=== PATIENT | male | born 1955 | race Caucasian/White ===

== ENCOUNTER → 2018-04-05 | Outpatient (CLI) | payer MEDICAID ==
[2018-04-05 14:33] LABS: Basophils # (A) 0.1 k/uL (0-0.2); Basophils % (A) 1 %; Eosinophils # (A) 0.1 k/uL (0-0.7); Eosinophils % (A) 1 %; HCT 46.7 % (39.0-53.0); Lymphocytes # (A) 1.6 k/uL (1.0-4.8); Lymphocytes % (A) 21 %; MCH 31.7 pg (25.0-35.0); MCHC 34.3 g/dL (31.0-37.0); MCV 92.3 fL (80.0-100.0); Mean Platelet Volume 7.7; Monocytes # (A) 0.5 k/uL (0-1.0); Monocytes % (A) 7 %; Neutrophils # (A) 5.4 k/uL (1.3-7.7); Neutrophils % (A) 70 %; Platelet Count 197 k/uL (150-450); RBC 5.06 m/uL (4.30-5.90); RDW 12.8 % (11.5-15.5); WBC 7.7 k/uL (3.8-10.6)
[2018-04-05 14:56] LABS: ALT 31 U/L (21-72); AST 24 U/L (17-59); Albumin 4.5 g/dL (3.5-5.0); Alkaline Phosphatase 43 U/L (38-126); Anion Gap 9 mmol/L; Blood Urea Nitrogen 13 mg/dL (9-20); Calcium 9.6 mg/dL (8.4-10.2); Carbon Dioxide 25 mmol/L (22-30); Chloride 106 mmol/L (98-107); Cholesterol 199 mg/dL (<200); Glucose 88 mg/dL (74-99); HDL Cholesterol 43 mg/dL (40-60); LDL Cholesterol,Calculated 134 mg/dL (0-99); Potassium 4.4 mmol/L (3.5-5.1); Sodium 140 mmol/L (137-145); Total Bilirubin 0.8 mg/dL (0.2-1.3); Total Protein 6.9 g/dL (6.3-8.2); Triglycerides 110 mg/dL (<150)
[2018-04-05 15:24] LABS: PSA Annual Screen 1.11 ng/mL (0.00-4.00)
== END | disposition home or self-care (01) ==
LOC: LABWHC1 14:05
PROVIDERS: ATTEND Family Medicine
DX: Z00.00 Encounter for general adult medical examination without abnormal findings (principal)
CPT/HCPCS: 80061; 80053; 84443; 85025; 36415; G0103

== ENCOUNTER → 2018-06-22 | Outpatient (CLI) | payer MEDICAID ==
--- NOTE | 2018-06-22 16:52 | CT ---
EXAMINATION TYPE: CT abdomen pelvis wo/w con DATE OF EXAM: 06/22/2018 COMPARISON: None INDICATION: lower anterior abdominal pain X 10 days DLP: 2102 mGycm, Automated exposure control for dose reduction was used. CONTRAST: 100 mL of Isovue 300. Study performed with Oral Contrast TECHNIQUE: Axial images were obtained from above the diaphragm to the pubic rami in the axial plane a t 5 mm thick sections. Reconstructed images are reviewed on the computer in the coronal plane. FINDINGS: Limited CT sections are obtained the lung bases. The lung bases are clear. CT ABDOMEN: Liver: Normal Spleen: Normal Pancreas: Normal Adrenal glands: The adrenal glands are normal. Gallbladder: Normal Kidneys: No masses are evident. No hydronephrosis is present. No cysts are present. No renal stone s are identified. Aorta: Normal Inferior vena cava: Normal. CT PELVIS: Small fat-containing inguinal hernias are present, slightly larger on the right Loops of bowel within the abdomen and pelvis are normal. Scattered diverticuli are within the sig moid colon without evidence of acute diverticulitis. There are some loops of bowel lacking oral contr ast or with limited distention limiting their evaluation. Appendix: Normal as visualized. Urinary bladder: Normal. Genitourinary structures: Prostate is prominent. Osseous structures: No suspicious lytic or sclerotic lesions. IMPRESSIONS: 1. No suspicious acute changes. 2. Diverticulosis without acute diverticulitis.
== END | disposition home or self-care (01) ==
LOC: RADCTMAIN 12:49
DX: K57.90 Diverticulosis of intestine, part unspecified, without perforation or abscess without bleeding (principal)
CPT/HCPCS: 74178; Q9967

== ENCOUNTER 2019-08-29 07:50 | Day surgery (SDC) | payer MEDICAID, MEDICARE ==
[2019-08-27 14:45] VITALS: BMI 27.8
[~2019-08-29 07:50] MED LIST: LACTATED RINGERS 1,000 ML IV SCH; LIDOCAINE 1% 20 ML VIAL (10MG/ML) FOR IV START INTRADERMA PRN
[2019-08-29 08:10] VITALS: RESP 16; TEMP 96.8
[2019-08-29] MEDS ORDERED: LIDOCAINE 1% 20 ML VIAL (10MG/ML) FOR IV START INTRADERMA ONE (08:14)
[2019-08-29] MEDS ORDERED: PROPOFOL 10 MG/ML 20 ML VIAL IV ONE (08:33)
[2019-08-29] MEDS ORDERED: LIDOCAINE 1% INJ 10MG/ML (20 ML MDV) ONE (08:33)
--- NOTE | 2019-08-29 08:44 | P.PCN ---
Date of Procedure: 08/29/19 Procedure(s) Performed: BRIEF HISTORY: Patient is a 64-year-old, pleasant, male, scheduled for an upper endoscopy as a part of evaluation of long-standing history of GERD and globus sensation his throat area for the last few weeks duration. He takes Prilosec as needed. He scheduled for an upper endoscopy with possible dilation. PROCEDURE PERFORMED: Esophagogastroduodenoscopy with biopsy. PREOPERATIVE DIAGNOSIS: Long-standing history of GERD/globus sensation in his throat. IV sedation per anesthesia. PROCEDURE: After informed consent was obtained, the patient was brought into the endoscopy unit. IV sedation was administered by Anesthesia under continuous monitoring. Initially the Olympus GIF-140 video endoscope was inserted into the mouth. Esophagus intubated without any difficulty. It was gradually advanced into the stomach and duodenum and carefully examined. The bulb and the second p art of the duodenum appeared normal. The scope at this time was withdrawn to the stomach, adequately insufflated with air, and upon careful examination, mucosa of the antrum, body, cardia and the fundus appeared normal. The scope was then withdrawn into the esophagus. The GE junction was located at 39 cm from the incisors. The esophagus appeared normal. There was a small sliding type hiatal hernia noted. There were 2 superficial erosions in the distal esophagus consistent with LA grade a reflux esophagitis. Rest of esophagus appeared normal. There was no evidence of esophageal stricture. Biopsies were done from mid and distal esophagus to rule out eosinophilic esophagitis. The patient tolerated the procedure well. IMPRESSION: 1. 2 superficial erosions at the GE junction consistent with LA grade a reflux esophagitis. 2. No evidence of esophageal stricture. 3. Small hiatal hernia RECOMMENDATIONS: The findings of this examination were discussed with the patient as well as his family. He was advised to follow with the biopsy results. In the meantime he will continue with omeprazole 20 mg daily for 8 weeks and follow antrum reflux measures..
[2019-08-29 08:50] VITALS: BP 121/80
[2019-08-29 09:07] VITALS: PULSE 58
== END 2019-08-29 09:20 | disposition home or self-care (01) ==
LOC: ORWHC2ENDO 07:50
PROVIDERS: ATTEND Internal Medicine Gastroenterology
DX: K21.0 Gastro-esophageal reflux disease with esophagitis (principal); K44.9 Diaphragmatic hernia without obstruction or gangrene; Z86.39 Personal history of other endocrine, nutritional and metabolic disease; Z79.899 Other long term (current) drug therapy
CPT/HCPCS: 88305; 43239; J2001; J2704

== ENCOUNTER → 2020-01-01 | Outpatient (CLI) | payer OTHER ==
--- NOTE | 2020-01-01 16:46 | XR ---
EXAMINATION TYPE: XR knee complete RT DATE OF EXAM: 01/01/2020 CLINICAL HISTORY: Posterior lateral pain after injury. TECHNIQUE: Three views of the right knee are obtained. COMPARISON: None. FINDINGS: There is no acute fracture/dislocation evident in right knee mild to moderate tricompartme nt joint space loss with mild patellofemoral compartment spurring. Increased density suprapatellar bu rsa suspicious for moderate joint effusion. IMPRESSION: There is no acute fracture or dislocation in the right knee.
== END | disposition home or self-care (01) ==
LOC: RADXRMAIN 16:10
PROVIDERS: ATTEND Emergency Medicine
DX: S83.91XA Sprain of unspecified site of right knee, initial encounter (principal)

== ENCOUNTER → 2020-01-14 | Outpatient (CLI) | payer MEDICARE, OTHER ==
--- NOTE | 2020-01-15 10:49 | MR ---
EXAMINATION TYPE: MR knee RT wo con DATE OF EXAM: 01/14/2020 COMPARISON: X-ray 01/01/2020 HISTORY: Pain TECHNIQUE: Multiplanar, multisequence imaging of the right knee is performed without IV contrast. FINDINGS: There is poor definition of the distal fibers of the ACL compatible with a partial tear. There is a l obulated cystic structure anterior to the insertion of the ACL measuring approximately 1.2 cm most co mpatible with a ganglion cyst. PCL intact. MCL and lateral collateral ligament intact. There is a tear involving the posterior horn of the medial meniscus. Mild narrowing of the joint spac e seen with evidence of grade II chondromalacia. Lateral meniscus intact. No marrow edema or contusion. There is a moderate amount of fluid in the suprapatellar bursa and ther e is fibrillation and early chondromalacia of the patellar cartilage. Retinaculum intact. Patellar an d quadriceps tendons intact. IMPRESSION: 1. There is a partial tear of the ACL with a 1.2 cm ganglion cyst anterior to the insertion of the AC L. 2. Posterior horn medial meniscal tear 3. Arthropathy with chondromalacia as discussed above.
== END | disposition home or self-care (01) ==
LOC: RADMRIMAIN 19:00
PROVIDERS: ATTEND Emergency Medicine
DX: S83.511A Sprain of anterior cruciate ligament of right knee, initial encounter (principal); M67.461 Ganglion, right knee; S83.241A Other tear of medial meniscus, current injury, right knee, initial encounter; M12.861 Other specific arthropathies, not elsewhere classified, right knee; M22.41 Chondromalacia patellae, right knee

== ENCOUNTER → 2020-04-28 | Outpatient (CLI) | payer MEDICAID, MEDICARE | END | disposition home or self-care (01) | LOC: LABWHC1 14:30 | PROVIDERS: ATTEND Pediatrics Pediatric Infectious Diseases | DX: Z03.818 Encounter for observation for suspected exposure to other biological agents ruled out (principal) | CPT/HCPCS: U0003; C9803 ==

== ENCOUNTER → 2020-05-16 | Outpatient (CLI) | payer MEDICAID, MEDICARE ==
[2020-05-16 16:05] LABS: Basophils # (A) 0.1 k/uL (0-0.2); Basophils % (A) 1 %; Eosinophils # (A) 0.2 k/uL (0-0.7); Eosinophils % (A) 3 %; HCT 41.1 % (39.0-53.0); Lymphocytes # (A) 1.6 k/uL (1.0-4.8); Lymphocytes % (A) 27 %; MCH 30.9 pg (25.0-35.0); MCV 90.9 fL (80.0-100.0); Mean Platelet Volume 7.5; Monocytes # (A) 0.4 k/uL (0-1.0); Monocytes % (A) 6 %; Neutrophils # (A) 3.8 k/uL (1.3-7.7); Neutrophils % (A) 62 %; Platelet Count 175 k/uL (150-450); RBC 4.53 m/uL (4.30-5.90); RDW 12.9 % (11.5-15.5); WBC 6.2 k/uL (3.8-10.6)
[2020-05-17 02:09] LABS: ALT 24 U/L (10-49); AST 30 U/L (14-35); Alkaline Phosphatase 50 U/L (41-126)
== END | disposition home or self-care (01) ==
LOC: LABWHC1 14:43
PROVIDERS: ATTEND Dermatology Procedural Dermatology
DX: B35.3 Tinea pedis (principal)
CPT/HCPCS: 36415; 84075; 84450; 84460; 85025

== ENCOUNTER → 2020-06-11 | Outpatient (CLI) | payer MEDICAID, MEDICARE | END | disposition home or self-care (01) | LOC: LABWHC1 09:01 | PROVIDERS: ATTEND Pediatrics Pediatric Infectious Diseases | DX: Z03.818 Encounter for observation for suspected exposure to other biological agents ruled out (principal); R05 Cough; R19.7 Diarrhea, unspecified | CPT/HCPCS: U0003; C9803 ==

== ENCOUNTER → 2020-07-14 | Outpatient (CLI) | payer OTHER ==
--- NOTE | 2020-07-15 08:35 | XR ---
Right femur HISTORY: Trauma and pain Frontal and lateral views of the right femur on 5 images Bone mineralization, joint spaces and alignment are maintained. IMPRESSION: No fracture or dislocation.
== END | disposition home or self-care (01) ==
LOC: RADXRMAIN 15:42
PROVIDERS: ATTEND Emergency Medicine
DX: S76.911A Strain of unspecified muscles, fascia and tendons at thigh level, right thigh, initial encounter (principal)

== ENCOUNTER → 2020-07-29 | Outpatient (CLI) | payer MEDICAID, MEDICARE ==
--- NOTE | 2020-07-29 11:44 | NM ---
EXAMINATION TYPE: NM stress cardiolite complete DATE OF EXAM: 07/29/2020 COMPARISON: NONE HISTORY: Chest pain TECHNIQUE: After the intravenous administration of 10.38 mCi Tc 99m Sestamibi - Rest images obtained 40 minutes post injection. The patient exercised using a COLE protocol and 1 minute prior to peak exercise was injected with 24.9 mCi Tc 99m Sestamibi - Stress images obtained 10 minutes post inject ion. FINDINGS: Targeted heart rate was achieved during performance of the study. Review of stress and rest SPECT gino ges demonstrates fixed defect involving the inferior lateral myocardium. There appears to be a small area of stress-induced reversible ischemia involving the inferior myocardium. Report called to referr ing clinician.. Gated analysis shows normal wall motion with an estimated left ventricular ejection fraction of 60 %. IMPRESSION: 1. There is a fixed area of defect involving the inferior lateral myocardium. However, there is also a small area of stress-induced bursal ischemia involving the inferior myocardium is suggested. A [place] level critical message alert has been initiated for Macey Hawley MD~[id number] via the [employer] Critical Results System on 07/29/2020 11:41 AM. This message alert has been sent to Joshua Hawley MD~[id number] via the preferences provided by the clinician for the receipt of Radiology Crit ica Findings. Message ID [id number].
--- NOTE | 2020-07-29 14:02 | P.STRESS ---
- Stress Test Note Stress Test Results/Findings: Exam Performed: NM stress cardiolite complete Exam Date: 07/29/20 Reason for Exam: PALPITATIONS, DYSPNEA Height: 4 ft 4 in Weight: 95.5 kg Protocol: CARDIOLITE STRESS COMPLETE Stage: 3 Duration of Exercise: 9:00 MINUTES Resting Heart Rate: 52 Resting Blood Pressure: 124/91 Maximum Achieved Heart Rate: 150 Maximum Achieved Blood Pressure: 197/77 85% PMHR: 131 100% PMHR: 154 METS: 10.3 Technologist Comment: Stress Test Results/Findings: Patient underwent exercise stress echo with a David protocol treadmill Cardiolite stress test. Patient exercised into Stage 3 for a total of 9 minutes reaching a total of 10.3 METS. Patient's maximum heart rate was 150 which represented 97 % age-predicted maximum heart rate. Stress EKG portion: At baseline patient's EKG showed sinus bradycardia with a rate of 52, normal axis, no significant ST or T wave abnormalities. At peak exercise, EKG showed 1.[address] depressions in the inferior leads concerning for ischemia. Conclusions: 1. Positive stress test with EKG changes consistent with ischemia. 2. Good exercise capacity. 3. Cardiolite portion to be reported separately.
--- NOTE | 2020-07-30 08:00 | ECHOF ---
Referral Reason:R00.2 palpitations R06.00 dyspnea MEASUREMENTS -------- HEIGHT: 182.9 cm WEIGHT: 95.3 kg BP: RVIDd: 4.6 cm (< 3.3) IVSd: 1.3 cm (0.6 - 1.1) LVIDd: 4.0 cm (3.9 - 5.3) LVPWd: 1.8 cm (0.6 - 1.1) IVSs: 1.7 cm LVIDs: 1.6 cm LVPWs: 1.8 cm LAESV Index (A-L): 47.00 ml/m Ao Diam: 3.3 cm (2.0 - 3.7) AV Cusp: 2.4 cm (1.5 - 2.6) MV EXCURSION: 19.604 mm (> 18.000) MV EF SLOPE: 126 mm/s (70 - 150) EPSS: 0.6 cm MV E Jose M: 0.57 m/s MV DecT: 411 ms MV A Jose M: 0.64 m/s MV E/A Ratio: 0.88 RAP: 5.00 mmHg RVSP: 17.52 mmHg FINDINGS -------- Sinus rhythm. This was a technically adequate study. The left ventricular size is normal. There is mild concentric left ventricular hypertrophy. Overa ll left ventricular systolic function is normal with, an EF between 55 - 60 %. The diastolic fillin g pattern is normal for the age of the patient 7.79. The right ventricle is moderately enlarged. LA is moderately dilated 34-39 ml/m2 The right atrial size is normal. Interatrial and interventricular septum intact. The aortic valve is trileaflet and appears structurally normal. There is mild aortic valve sclerosi s. There is no evidence of aortic regurgitation. There is no evidence of aortic stenosis. Mild mitral regurgitation is present. Mild tricuspid regurgitation present. There is no evidence of pulmonary hypertension. The right v entricular systolic pressure, as measured by Doppler, is 17.52mmHg. Trace/mild (physiologic) pulmonic regurgitation. The aortic root size is normal. IVC Not well visulized. There is no pericardial effusion. CONCLUSIONS -------- 1. The left ventricular size is normal. 2. There is mild concentric left ventricular hypertrophy. 3. Overall left ventricular systolic function is normal with, an EF between 55 - 60 %. 4. The diastolic filling pattern is normal for the age of the patient 7.79 5. The right ventricle is moderately enlarged. 6. LA is moderately dilated 34-39 ml/m2 7. There is mild aortic valve sclerosis. 8. Mild mitral regurgitation is present. 9. Mild tricuspid regurgitation present. 10. Trace/mild (physiologic) pulmonic regurgitation. COSMETICS MACHINE OPERATOR: Argenis Nolasco RDCS
== END | disposition home or self-care (01) ==
LOC: RADNMMAIN 07:53
PROVIDERS: ATTEND Internal Medicine Interventional Cardiology
DX: I08.1 Rheumatic disorders of both mitral and tricuspid valves (principal); R94.31 Abnormal electrocardiogram [ECG] [EKG]
CPT/HCPCS: 93017; 93306; 93270; 78452; A9500

== ENCOUNTER → 2020-08-06 | Outpatient (CLI) | payer MEDICAID, MEDICARE ==
[2020-08-06 15:37] LABS: HCT 43.3 % (39.0-53.0); HGB 14.6 gm/dL (13.0-17.5); MCH 30.8 pg (25.0-35.0); MCHC 33.7 g/dL (31.0-37.0); MCV 91.2 fL (80.0-100.0); Mean Platelet Volume 7.7; Platelet Count 169 k/uL (150-450); RBC 4.75 m/uL (4.30-5.90); RDW 13.3 % (11.5-15.5); WBC 6.3 k/uL (3.8-10.6)
[2020-08-06 15:49] LABS: African American GFR (CKD) >90 (>60 ml/min/1.73 sqM); Anion Gap 5 mmol/L; Blood Urea Nitrogen 16 mg/dL (9-20); Carbon Dioxide 29 mmol/L (22-30); Chloride 106 mmol/L (98-107); Non-African American GFR(CKD) 90 (>60 ml/min/1.73 sqM); Potassium 4.4 mmol/L (3.5-5.1); Sodium 140 mmol/L (137-145)
== END | disposition home or self-care (01) ==
LOC: LABPAT 14:34
PROVIDERS: ATTEND Internal Medicine Interventional Cardiology
DX: Z01.818 Encounter for other preprocedural examination (principal); R94.39 Abnormal result of other cardiovascular function study
CPT/HCPCS: 36415; 80051; 82565; 84520; 85027

== ENCOUNTER 2020-08-13 06:19 | Day surgery (SDC) | payer MEDICAID, MEDICARE ==
[2020-08-06 18:02] VITALS: BMI 28.5
[~2020-08-13 06:19] MED LIST changes: +ALPRAZolam 0.25 MG TAB PO PRN; +ALPRAZolam 0.5 MG TAB PO PRN; +ASPIRIN 325 MG TAB PO STA; +ATORVASTATIN 80 MG TAB PO STA; -LACTATED RINGERS 1,000 ML IV SCH; -LIDOCAINE 1% 20 ML VIAL (10MG/ML) FOR IV START INTRADERMA PRN; +NITROGLYCERIN SL TABS 0.4 MG TAB SUBLINGUAL PRN; +SODIUM CHLORIDE 0.9% 1,000 ML in EMPTY BAG 1 BAG IV ONE
[2020-08-13 06:37] VITALS: RESP 16; TEMP 97.9
[2020-08-13] MEDS ORDERED: SODIUM CHLORIDE 0.9% 1,000 ML IV ONE (06:45)
[2020-08-13] MEDS ORDERED: VERAPAMIL 2.5 MG/ML 2 ML AMP ONE (07:14)
[2020-08-13] MEDS ORDERED: LIDOCAINE 1% INJ 10MG/ML (20 ML MDV) ONE (07:14)
[2020-08-13] MEDS ORDERED: fentaNYL (PF) 50 MCG/ML 2 ML AMP ONE (07:15)
[2020-08-13] MEDS ORDERED: HEPARIN SODIUM 1,000 UN/ML (10ML VL) ONE (07:15)
[2020-08-13] MEDS ORDERED: fentaNYL (PF) 50 MCG/ML 2 ML AMP IVP ONE (07:40)
[2020-08-13] MEDS ORDERED: LIDOCAINE 1% INJ 10MG/ML (20 ML MDV) SQ ONE ×2 (07:45→08:03)
[2020-08-13] MEDS ORDERED: IOPAMIDOL-370 125ML BTL INJ ONE (08:25)
[2020-08-13] MEDS ORDERED: IOPAMIDOL-370 100ML BTL INJ ONE (08:40)
[2020-08-13] MEDS ORDERED: RX INFO: IV CONTRAST WAS GIVEN 1 EACH MISC MISCELLANE PRN (08:54)
[2020-08-13] MEDS ORDERED: SODIUM CHLORIDE 0.9% 1,000 ML IV SCH (09:00)
--- NOTE | 2020-08-13 09:25 | CC ---
CARDIAC CATHETERIZATION REPORT Mr. Starks is a 65-year-old male who has been complaining of progressive dyspnea on exertion. He underwent myocardial perfusion imaging that revealed an inferior wall defect. In view of that, recommendation was made regarding cardiac catheterization. The procedure as well as the risks and complications were discussed with the patient who is in full understanding and agreement. PROCEDURE: Patient was brought to [facility] in the fasting semi-sedated state after receiving fentanyl and Benadryl and achieving moderate conscious state. Attempts to advance a wire in the right radial artery were unsuccessful because of vasospasm. Subsequently, using Xylocaine anesthesia in the Seldinger technique, a 6-Jordanian sheath was introduced in the right femoral artery. Selective left coronary angiography was performed using 6- Jordanian 4 bend left Erik catheter. Multiple attempts to cannulate the right coronary artery were unsuccessful because of the posterior takeoff. Attempt using a right Erik 4 bend, Amplatz left 1, Amplatz the left 0.75 Talon posterior takeoff and subsequently FR5 catheter was used to get nonselective images of the right coronary artery. The aortic valve was crossed using the catheter and left ventricular end- diastolic pressure was calculated. Following that, catheter and sheath were removed. Hemostasis was obtained with deployment of an Angio-Seal. There was no immediate complication. Patient was returned to his room in stable condition. FINDINGS: LEFT MAIN: This is a large-sized vessel, trifurcating into left circumflex, left anterior descending artery and ramus intermedius. Left main coronary artery has no evidence of high-grade stenosis. LEFT ANTERIOR DESCENDING ARTERY: This is a large-sized vessel reaching to the apex with a wraparound apex segment giving rise to small to moderately sized diagonal branch. The left anterior descending artery has mild plaque proximal 10% to 20% without any evidence of high-grade stenosis. RAMUS INTERMEDIUS: This is a large-sized vessel reaching toward the apical lateral wall. The ramus intermedius has no evidence of high-grade stenosis. LEFT CIRCUMFLEX: This is a nondominant vessel giving rise to 2 obtuse marginal branches. The first obtuse marginal branch has a 20% to 30% plaque. The rest of the vessel has no high-grade stenosis. RIGHT CORONARY ARTERY: This is a dominant vessel, has a high posterior takeoff. Nonselective images revealed no evidence of obstructive disease. LEFT VENTRICULOGRAM: Left ventriculogram was not performed. HEMODYNAMICS: There was no gradient across the aortic valve. The left ventricle end-diastolic pressure was 10-12 mmHg. CONCLUSION: 1. 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 2. Normal left ventricular end-diastolic pressure. RECOMMENDATION: In view of finding anatomy, I recommend continue medical therapy with aggressive coronary risk modifications being initiated. Those findings and recommendation were discussed with the patient and he is full understanding and agreement. Duration of the sedation is 58 minutes. MMODL / IJN: [id number] /
--- NOTE | 2020-08-13 09:31 | LTR ---
August 13, 2020 Re: Konstantin Starks Dear Dr. Castro: I had the opportunity to perform cardiac catheterization on Mr. Starks at [facility] on the 13 of August and a full copy of procedure note will be forwarded to you. In brief, he was found to have mild obstructive disease with not any evidence of high-grade stenosis and based on those findings, I recommend continue medical therapy with the aggressive coronary risk modifications being initiated. Thank you again for allowing me the opportunity to participate in his care. Please feel free to call for any questions. Sincerely yours, Macey Hawley MD [id number] / ABBYN: [id number] /
[2020-08-13 12:37] VITALS: BP 113/64; PULSE 68
[2020-08-14] MEDS ORDERED: ASPIRIN 81 MG PO SCH (09:00)
== END 2020-08-13 14:00 | disposition home or self-care (01) ==
LOC: CATHCVL 06:19
PROVIDERS: ATTEND Internal Medicine Interventional Cardiology
DX: I25.10 Atherosclerotic heart disease of native coronary artery without angina pectoris (principal); R94.39 Abnormal result of other cardiovascular function study; I73.9 Peripheral vascular disease, unspecified; Z82.49 Family history of ischemic heart disease and other diseases of the circulatory system; Z87.891 Personal history of nicotine dependence; Z86.19 Personal history of other infectious and parasitic diseases; Z79.82 Long term (current) use of aspirin
CPT/HCPCS: 93458; C1760; C1887 ×2; C1769 ×3; C1894 ×2; J2001; J3010; Q9967 ×2

== ENCOUNTER → 2020-12-25 | Outpatient (CLI) | payer MEDICAID, MEDICARE | END | disposition home or self-care (01) | LOC: LABWHC1 11:37 | PROVIDERS: ATTEND Emergency Medicine | DX: Z20.822 Contact with and (suspected) exposure to COVID-19 (principal) | CPT/HCPCS: U0003; C9803 ==

== ENCOUNTER → 2021-10-09 | Outpatient (CLI) | payer MEDICAID, MEDICARE ==
--- NOTE | 2021-10-14 10:11 | P.ARTDOP ---
Arterial Doppler LOWER EXTREMITY ARTERIAL DOPPLER: DATE OF SERVICE: 10/09/2021 Reason for study: Nocturnal leg pain. Doppler waveforms: Multiphasic throughout with excellent digital waveforms. Pulse volume recording: []. Pressure gradients: None. Ankle-brachial indices: Greater than 1 bilaterally. Toe brachial indices: 0.95 on the right, 1.10 on the left Impression: Perfusion status appears normal. Somewhat exaggerated ankle pressures suggests the possibility of calcific wall disease with no hemodynamic significance..
== END | disposition home or self-care (01) ==
LOC: RADUSWWP 13:23
PROVIDERS: ATTEND Internal Medicine Geriatric Medicine
DX: R25.2 Cramp and spasm (principal); R60.9 Edema, unspecified
CPT/HCPCS: 93922

== ENCOUNTER → 2022-01-26 | Outpatient (CLI) | payer OTHER ==
--- NOTE | 2022-01-26 12:32 | XR ---
Right knee HISTORY: S83.90XA M25.561 Pain right knee 3 views of the right knee correlated to prior exam right femur 07/14/2020 Joint space loss is present medial compartment. Alignment is not significantly changed. Bone minerali zation is normal. There is spurring at the patellofemoral joint. No fracture or dislocation. Difficul t to exclude joint effusion. IMPRESSION: Osteoarthritis.
== END | disposition home or self-care (01) ==
LOC: RADXRMAIN 11:59
PROVIDERS: ATTEND Emergency Medicine
DX: M17.11 Unilateral primary osteoarthritis, right knee (principal)

== ENCOUNTER → 2022-02-12 | Outpatient (CLI) | payer MEDICARE, OTHER ==
--- NOTE | 2022-02-13 20:04 | MR ---
EXAMINATION TYPE: MR knee RT wo con DATE OF EXAM: 02/12/2022 COMPARISON: 01/14/2020 HISTORY: Right knee pain Multiplanar multi echo imaging of the right knee with no contrast. There is complete tear of the anterior cruciate ligament. Posterior cruciate ligament is intact. Ther e is knee joint effusion. The collateral ligaments appear intact. There is knee joint effusion. There is some thinning of the posterior horn of the medial meniscus with vertical tear and mild truncation . There is some narrowing of the medial joint space. No fracture seen. There is some edema and fluid signal at the base of the tibial spines anteriorly and posteriorly. IMPRESSION: Complete tear anterior cruciate ligament. Knee joint effusion. Truncation and vertical tear through t he posterior horn of the medial meniscus. Minimal bone bruise and degenerative cyst formation at the base of the tibial spines.
== END | disposition home or self-care (01) ==
LOC: RADMRIMAIN 12:42
PROVIDERS: ATTEND Orthopaedic Surgery Sports Medicine
DX: M23.321 Other meniscus derangements, posterior horn of medial meniscus, right knee (principal)

== ENCOUNTER 2022-03-09 12:44 | Emergency (ER) | payer MEDICAID, MEDICARE ==
[2022-03-09 12:58] VITALS: BP 142/84; PULSE 55; RESP 18
[2022-03-09 13:02] VITALS: TEMP 98.4
--- NOTE | 2022-03-09 14:40 | ED ---
Upper Extremity HPI - General Chief Complaint: Extremity Injury, Upper Stated Complaint: Shoulder injury Time Seen by Provider: 03/09/22 13:22 Source: patient, RN notes reviewed Mode of arrival: ambulatory Limitations: no limitations - History of Present Illness Initial Comments: This is a 14-year-old male who presents to the emergency department for right shoulder pain. Patient states that he has a history of a partial rotator cuff tear that was repaired by orthopedics. States that approximately one week ago, he was lifting heavy boxes, and has since had progressive right shoulder pain. Also states that he is able to feel a popping sensation in the shoulder. States he is barely able to move the arm at this point. Believes that he has a comple tely torn rotator cuff. He is requesting an MRI of the shoulder. He has not been evaluated by any providers for this injury at this point. Denies any fevers, chills, sore throat, cough, dyspnea, chest pain, palpitations, abdominal pain, nausea, vomiting, diarrhea, back pain, or headaches. MD Complaint: Injury to:: right, shoulder Onset/Timin -: week(s) Associated Symptoms: heard/felt popping sensat - Related Data Home Medications Medication Instructions Recorded Confirmed Aspirin 81 mg PO DAILY 08/06/20 08/13/20 Ibuprofen 200 - 400 mg PO Q6H PRN 08/06/20 08/06/20 Omeprazole Magnesium [PriLOSEC OTC] 20 mg PO DAILY PRN 08/06/20 08/13/20 diphenhydrAMINE [Benadryl] 25 mg PO HS PRN 08/06/20 08/13/20 Allergies Allergy/AdvReac Type Severity Reaction Status Date / Time No Known Allergies Allergy Verified 03/09/22 12:58 Review of Systems ROS Statement: Those systems with pertinent positive or pertinent negative responses have been documented in the HPI. ROS Other: All systems not noted in ROS Statement are negative. Past Medical History Past Medical History: Cancer, GERD/Reflux Additional Past Medical History / Comment(s): Hypoglycemia. Poss GERD. Productive Coughing up numerous times per day, some regurgitation, feels like lump in throat. History of Any Multi-Drug Resistant Organisms: None Reported Past Surgical History: Orthopedic Surgery, Tonsillectomy Additional Past Surgical History / Comment(s): Colonoscopy. Lt knee meniscus repair. Deviated septum surg. Past Anesthesia/Blood Transfusion Reactions: No Reported Reaction Additional Past Anesthesia/Blood Transfusion Reaction / Comment(s): No transfusion hx Past Psychological History: No Psychological Hx Reported Smoking Status: Former smoker Past Alcohol Use History: None Reported Past Drug Use History: None Reported - Past Family History Father Family Medical History: Cancer Additional Family Medical History / Comment(s): lung, throat CA Mother Family Medical History: Cancer, Deep Vein Thrombosis (DVT) Additional Family Medical History / Comment(s): Breast CA. PVD, amputation. ? poss DVT General Exam Limitations: no limitations General appearance: alert, in no apparent distress Head exam: Present: atraumatic, normocephalic, normal inspection Respiratory exam: Present: normal lung sounds bilaterally. Absent: respiratory distress, wheezes, rales, rhonchi, stridor Cardiovascular Exam: Present: regular rate, normal rhythm, normal heart sounds. Absent: systolic murmur, diastolic murmur, rubs, gallop, clicks Extremities exam: Present: other (Palpable instability in the right shoulder joint, limited passive ROM secondary to pain. Tenderness to palpation over the right AC joint. 2+ radial pulses and capillary refill <1 second bilaterally.) Neurological exam: Present: alert, oriented X3, CN II-XII intact Psychiatric exam: Present: normal affect, normal mood Skin exam: Present: warm, dry, intact, normal color. Absent: rash Course Vital Signs 03/09/22 12:55 Temperature 98.4 F Pulse Rate 55 L Respiratory 18 Rate Blood Pressure 142/84 O2 Sat by Pulse 97 Oximetry Medical Decision Making - Medical Decision Making This is a 66-year-old male who presents to the emergency department for right shoulder pain. Discussed that we do not perform MRIs in the emergency department. We have the ability to do x-rays and CT scans. While we cannot d efinitively identify rotator cuff tears, they can provide soft signs to signal these injuries. Patient is declining x-rays and CT scans, and is requesting an order for an outpatient MRI. Prescription for outpatient MRI provided. Advised that I cannot be sure that this order will be accepted, and his insurance may not pay for this unless he has an x-ray prior. Patient expresses understanding and wishes to proceed with the MRI. If his insurance will not cover the cost of this or there is a problem with the order, instructed him to follow up with Dr. Castro for an MRI order. Advised [id number] ibuprofen and Tylenol for pain relief. Return precautions reviewed in depth, the patient is instructed to return to the emergency department with any new, worsening, or concerning symptoms. Patient verbalized understanding. This case was discussed in detail with the attending ED physician. Presentation, findings, and treatment plan discussed in detail as well. Disposition Clinical Impression: Right shoulder injury, Other instability, right shoulder, Right shoulder pain Disposition: HOME SELF-CARE Instructions (If sedation given, give patient instructions): Rotator Cuff Injury (ED) Additional Instructions: Return to the emergency department with any new, worsening, or concerning symptoms. Take Tylenol and ibuprofen as needed for pain. Is patient prescribed a controlled substance at d/c from ED?: No Referrals: Neal Castro MD [Primary Care Provider] - 1-2 days
== END 2022-03-09 14:50 | disposition home or self-care (01) ==
LOC: EC 12:44
DX: S49.91XA Unspecified injury of right shoulder and upper arm, initial encounter (principal); M25.311 Other instability, right shoulder; K21.9 Gastro-esophageal reflux disease without esophagitis; Z79.899 Other long term (current) drug therapy; Z72.89 Other problems related to lifestyle

== ENCOUNTER → 2022-03-10 | Outpatient (CLI) | payer MEDICAID, MEDICARE ==
--- NOTE | 2022-03-10 23:00 | MR ---
EXAMINATION TYPE: MR shoulder RT wo con DATE OF EXAM: 03/10/2022 COMPARISON: None. HISTORY: NO prior, pain and decreased ROM for 1 week, no injury TECHNIQUE: Multiplanar, multisequence imaging of the right shoulder is performed without contrast. FINDINGS: Rotator Cuff: Some increased signal in the distal supraspinatus tendon. No significant tearing is see n. Rotator cuff muscle bulk is preserved. Acromioclavicular Joint: Mild to moderate narrowing and capsular hypertrophy. No significant spurring . Glenohumeral Joint: Moderate size joint effusion. No significant spurring. Labrum: Increased signal superior labrum suggesting degenerative tear. Biceps Tendon: The long head of biceps is in normal location within bicipital groove. Bone marrow signal: Subchondral cystic change involving the inferior glenoid Other: No additional significant abnormality is appreciated. IMPRESSION: 1. Tendinopathy distal supraspinatus tendon. Moderate size glenohumeral joint effusion. No significan t rotator cuff tear.
== END | disposition home or self-care (01) ==
LOC: RADMRIMAIN 06:14
PROVIDERS: ATTEND Emergency Medicine
DX: M25.511 Pain in right shoulder (principal); M25.311 Other instability, right shoulder; M25.411 Effusion, right shoulder

== ENCOUNTER → 2022-06-16 | Outpatient (CLI) | payer MEDICARE, BC ==
[2022-06-16 18:51] LABS: African American GFR (CKD) 89.2 (60.0-200.0); Albumin 4.5 g/dL (3.8-4.9); Albumin/Globulin Ratio 1.96 (1.60-3.17); Anion Gap 9.5 mmol/L (10.00-18.00); BUN/Creat Ratio 12.1 Ratio (12.00-20.00); Blood Urea Nitrogen 12.1 mg/dL (9.0-27.0); Calcium 9.5 mg/dL (8.7-10.3); Carbon Dioxide 26.5 mmol/L (20.0-27.5); Globulin 2.3 g/dL (1.6-3.3); Potassium 4.8 mmol/L (3.5-5.5); Total Bilirubin 0.6 mg/dL (0.30-1.20); Total Protein 6.8 g/dL (6.2-8.2)
== END | disposition home or self-care (01) ==
LOC: LABWHC1 13:58
PROVIDERS: ATTEND Student in an Organized Health Care Education/Training Program
DX: B35.1 Tinea unguium (principal)
CPT/HCPCS: 36415; 80053

== ENCOUNTER 2023-05-01 13:30 | Observation (INO) | payer MEDICARE, BC ==
--- NOTE | 2023-05-01 14:15 | XR ---
EXAMINATION TYPE: XR chest 2V DATE OF EXAM: 05/01/2023 COMPARISON: NONE HISTORY: Shortness of breath TECHNIQUE: Frontal and lateral views of the chest are obtained. FINDINGS: Scattered senescent parenchymal changes noted. Hyperinflation compatible with COPD. No evidence for infiltrate. No evidence for atelectasis. Heart size is stable. Mediastinal structures are stable and grossly unremarkable. No evidence for hilar prominence. Degenerative changes dorsal spine. IMPRESSION: 1. No evidence for acute pulmonary disease.
[2023-05-01 14:23] LABS: ALT 32 U/L (4-49); AST 37 U/L (17-59); African American GFR (CKD) >90 (>60 ml/min/1.73 sqM); Albumin 4.1 g/dL (3.5-5.0); Alkaline Phosphatase 54 U/L (38-126); Anion Gap 8 mmol/L; Basophils # (A) 0.1 k/uL (0-0.2); Basophils % (A) 1 %; Blood Urea Nitrogen 13 mg/dL (9-20); Calcium 9.3 mg/dL (8.4-10.2); Carbon Dioxide 23 mmol/L (22-30); Chloride 107 mmol/L (98-107); Eosinophils # (A) 0.2 k/uL (0-0.7); Eosinophils % (A) 3 %; Glucose 158 mg/dL (74-99); HCT 46.5 % (39.0-53.0); HGB 16.1 gm/dL (13.0-17.5); Lymphocytes # (A) 1.3 k/uL (1.0-4.8); Lymphocytes % (A) 20 %; MCHC 34.6 g/dL (31.0-37.0); MCV 92.7 fL (80.0-100.0); Magnesium 1.8 mg/dL (1.6-2.3); Mean Platelet Volume 8.3; Monocytes # (A) 0.4 k/uL (0-1.0); Monocytes % (A) 6 %; Neutrophils # (A) 4.5 k/uL (1.3-7.7); Neutrophils % (A) 69 %; Non-African American GFR(CKD) 83 (>60 ml/min/1.73 sqM); Platelet Count 164 k/uL (150-450); Potassium 4.4 mmol/L (3.5-5.1); RBC 5.02 m/uL (4.30-5.90); RDW 13.3 % (11.5-15.5); Sodium 138 mmol/L (137-145); Total Bilirubin 0.9 mg/dL (0.2-1.3); Total Protein 6.4 g/dL (6.3-8.2); WBC 6.6 k/uL (3.8-10.6)
[2023-05-01 14:28] LABS: Partial Thromboplastin Time 22.7 sec (22.0-30.0); Prothrombin Time 10.7 sec (9.0-12.0)
[2023-05-01] MEDS ORDERED: SODIUM CHLORIDE 0.9% 1,000 ML IV ONE (16:28)
[2023-05-01] MEDS ORDERED: ASPIRIN 81 MG PO STA (16:28)
[2023-05-01] MEDS: MECLIZINE 12.5 MG TAB PO STA ×2 (16:54→16:57)
[2023-05-01] MEDS ORDERED: NALOXONE 0.4 MG/ML 1 ML VIAL IV PRN (17:33)
[2023-05-01] MEDS ORDERED: ACETAMINOPHEN TAB 325 MG TAB PO PRN (17:33)
--- NOTE | 2023-05-01 17:35 | ED ---
Arrhythmia/Palpitations HPI - General Chief Complaint: Arrhythmia/Palpitations Stated Complaint: sob/cardiac symptoms Time Seen by Provider: 05/01/23 16:08 Source: patient Mode of arrival: ambulatory Limitations: no limitations - History of Present Illness Initial Comments: 67-year-old male presenting with chief complaint of palpitations. Patient states that starting yesterday he has had episodes of palpitations that are accompanied by dizziness, chest tightness, and shortness of breath. He has no history of A. fib or other dysrhythmias. States that his blood pressure was elevated at home and states he does not have history of hypertension. At this time he is still feeling lightheaded. No nausea, vomiting, vision or hearing changes, numbness, tingling, weakness, abdominal pain. - Related Data Home Medications Medication Instructions Recorded Confirmed Cetirizine HCl [Zyrtec] 10 mg PO DAILY PRN 05/01/23 05/01/23 Clobetasol Propionate [Temovate 1 applic TOPICAL BID 05/01/23 05/01/23 0.05% Oint] Cyclobenzaprine [Flexeril] 10 mg PO BID PRN 05/01/23 05/01/23 Pantoprazole [Protonix] 40 mg PO DAILY PRN 05/01/23 05/01/23 Allergies Allergy/AdvReac Type Severity Reaction Status Date / Time No Known Allergies Allergy Verified 05/01/23 17:10 Review of Systems ROS Statement: Those systems with pertinent positive or pertinent negative responses have been documented in the HPI. ROS Other: All systems not noted in ROS Statement are negative. Past Medical History Past Medical History: Atrial Fibrillation, Cancer, GERD/Reflux Additional Past Medical History / Comment(s): Hypoglycemia. Poss GERD. Productive Coughing up numerous times per day, some regurgitation, feels like lump in throat. History of Any Multi-Drug Resistant Organisms: None Reported Past Surgical History: Orthopedic Surgery, Tonsillectomy Additional Past Surgical History / Comment(s): Colonoscopy. Lt knee meniscus repair. Deviated septum surg. Past Anesthesia/Blood Transfusion Reactions: No Reported Reaction Additional Past Anesthesia/Blood Transfusion Reaction / Comment(s): No transfusion hx Past Psychological History: No Psychological Hx Reported Smoking Status: Former smoker Past Alcohol Use History: None Reported Past Drug Use History: None Reported - Past Family History Father Family Medical History: Cancer Additional Family Medical History / Comment(s): lung, throat CA Mother Family Medical History: Cancer, Deep Vein Thrombosis (DVT) Additional Family Medical History / Comment(s): Breast CA. PVD, amputation. ? poss DVT General Exam Limitations: no limitations General appearance: alert, in no apparent distress Head exam: Present: atraumatic, normocephalic, normal inspection Eye exam: Present: normal appearance, EOMI Neck exam: Present: normal inspection, full ROM Respiratory exam: Present: normal lung sounds bilaterally. Absent: respiratory distress, wheezes, rales, rhonchi, stridor Cardiovascular Exam: Present: regular rate, normal rhythm, normal heart sounds. Absent: systolic murmur, diastolic murmur, rubs, gallop, clicks Neurological exam: Present: alert, oriented X3, CN II-XII intact Expanded Eye Response: (4) open spontaneously Motor Response: (6) obeys commands Verbal Response: (5) oriented [place] Total: 15 Psychiatric exam: Present: normal affect, normal mood Skin exam: Present: warm, dry, intact, normal color. Absent: rash Course Vital Signs 05/01/23 05/01/23 05/01/23 13:35 15:21 18:00 Temperature 98 F 98.0 F Pulse Rate 75 53 L 49 L Respiratory 20 20 16 Rate Blood Pressure 142/88 144/87 145/92 O2 Sat by Pulse 99 94 L 98 Oximetry EKG Findings - EKG Comments: EKG Findings:: Sinus rhythm ventricular rate 61. OK interval 186. QRS 92. QT 409. QTc 413. Normal axis. Medical Decision Making - Medical Decision Making Was pt. sent in by a medical professional or institution (, PA, RAW FINISH MILL OPERATOR, urgent care, hospital, or group home...) When possible be specific @ -No Did you speak to anyone other than the patient for history (EMS, parent, family, police, friend...)? What history was obtained from this source @ -No Did you review nursing and triage notes (agree or disagree)? Why? @ -I reviewed and agree with nursing and triage notes Were old charts reviewed (outside hosp., previous admission, EMS record, old EKG, old radiological studies, urgent care reports/EKG's, group home records)? Report findings @ -No old charts were reviewed Differential Diagnosis (chest pain, altered mental status, abdominal pain women, abdominal pain men, vaginal bleeding, weakness, fever, dyspnea, syncope, headache, dizziness, GI bleed, back pain, seizure, CVA, palpatations, mental health, musculoskeletal)? @ -Differential Palpitations Ventricular arrhythmias, atrial arrhythmias, myocardial infarction, anemia, thyrotoxicosis, electrolyte imbalance, hypokalemia, pulmonary embolism, pulmonary disease, drugs, alcohol, anxiety, stress.... This is not meant to be an all-inclusive list. EKG interpreted by me (3pts min.). @ -As above X-rays interpreted by me (1pt min.). @ -Chest x-ray shows no acute process CT interpreted by me (1pt min.). @ -None done U/S interpreted by me (1pt. min.). @ -None done What testing was considered but not performed or refused? (CT, X-rays, U/S, labs)? Why? @ -None What meds were considered but not given or refused? Why? @ -None Did you discuss the management of the patient with other professionals (professionals i.e. , PA, RAW FINISH MILL OPERATOR, lab, RT, psych nurse, psychiatric social worker supervisor, wafer batter mixer, teacher, correctional officer lieutenant, case folder)? Give summary @ -Spoke with Annemarie Montaño from [facility] who accepted admission Was smoking cessation discussed for >3mins.? @ -No Was critical care preformed (if so, how long)? @ -No Were there social determinants of health that impacted care today? How? (Homelessness, low income, unemployed, alcoholism, drug addiction, transportation, low edu. Level, literacy, decrease access to med. care, group home, rehab)? @ -No Was there de-escalation of care discussed even if they declined (Discuss DNR or withdrawal of care, Hospice)? DNR status @ -No What co-morbidities impacted this encounter? (DM, HTN, Smoking, COPD, CAD, Cance r, CVA, ARF, Chemo, Hep., AIDS, mental health diagnosis, sleep apnea, morbid obesity)? @ -None Was patient admitted / discharged? Hospital course, mention meds given and route, prescriptions, significant lab abnormalities, going to OR and other pertinent info. @ -67-year-old male presenting with chief complaint of palpitations and dizziness. Accompanied by chest tightness and shortness of breath. Physical examination is conducted. Lab work is grossly negative. EKG shows sinus rhythm and chest x-ray shows no acute process. Patient is continuing to feel lightheaded. He'll be admitted for observation with evaluation by cardiology. Follow-up with PCP. Report back to ER with any new or worsening symptoms. Discussed return parameters and answered all questions. Patient conveyed verbal understanding and agreed to the plan. I discussed this case in detail with my attending Dr. Quiroz Undiagnosed new problem with uncertain prognosis? @ -No Drug Therapy requiring intensive monitoring for toxicity (Heparin, Nitro, Insulin, Cardizem)? @ -No Were any procedures done? @ -No Diagnosis/symptom? @ -Dizziness, palpitations, chest tightness Acute, or Chronic, or Acute on Chronic? @ -acute Uncomplicated (without systemic symptoms) or Complicated (systemic symptoms)? @ -Complicated Side effects of treatment? @ -No Exacerbation, Progression, or Severe Exacerbation? @ -No Poses a threat to life or bodily function? How? (Chest pain, USA, HI, pneumonia, PE, COPD, DKA, ARF, appy, cholecystitis, CVA, Diverticulitis, Homicidal, Suicidal, threat to staff... and all critical care pts) @ -yes - Lab Data Result diagrams: 05/01/23 14:00 05/01/23 14:00 Lab Results 05/01/23 05/01/23 05/01/23 Range/Units 14:00 14:00 14:00 WBC 6.6 (3.8-10.6) k/uL RBC 5.02 (4.30-5.90) m/uL Hgb 16.1 (13.0-17.5) gm/dL Hct 46.5 (39.0-53.0) % MCV 92.7 (80.0-100.0) fL MCH 32.0 (25.0-35.0) pg MCHC 34.6 (31.0-37.0) g/dL RDW 13.3 (11.5-15.5) % Plt Count 164 (150-450) k/uL MPV 8.3 Neutrophils % 69 % Lymphocytes % 20 % Monocytes % 6 % Eosinophils % 3 % Basophils % 1 % Neutrophils # 4.5 (1.3-7.7) k/uL Lymphocytes # 1.3 (1.0-4.8) k/uL Monocytes # 0.4 (0-1.0) k/uL Eosinophils # 0.2 (0-0.7) k/uL Basophils # 0.1 (0-0.2) k/uL PT 10.7 (9.0-12.0) sec INR 1.0 (<1.2) APTT 22.7 (22.0-30.0) sec Sodium 138 (137-145) mmol/L Potassium 4.4 (3.5-5.1) mmol/L Chloride 107 (98-107) mmol/L Carbon Dioxide 23 (22-30) mmol/L Anion Gap 8 mmol/L BUN 13 (9-20) mg/dL Creatinine 0.94 (0.66-1.25) mg/dL Est GFR (CKD-EPI)AfAm >90 (>60 ml/min/1.73 sqM) Est GFR (CKD-EPI)NonAf 83 (>60 ml/min/1.73 sqM) Glucose 158 H (74-99) mg/dL Calcium 9.3 (8.4-10.2) mg/dL Magnesium 1.8 (1.6-2.3) mg/dL Total Bilirubin 0.9 (0.2-1.3) mg/dL AST 37 (17-59) U/L ALT 32 (4-49) U/L Alkaline Phosphatase 54 (38-126) U/L Troponin I (0.000-0.034) ng/mL Total Protein 6.4 (6.3-8.2) g/dL Albumin 4.1 (3.5-5.0) g/dL 05/01/23 Range/Units 14:00 WBC (3.8-10.6) k/uL RBC (4.30-5.90) m/uL Hgb (13.0-17.5) gm/dL Hct (39.0-53.0) % MCV (80.0-100.0) fL MCH (25.0-35.0) pg MCHC (31.0-37.0) g/dL RDW (11.5-15.5) % Plt Count (150-450) k/uL MPV Neutrophils % % Lymphocytes % % Monocytes % % Eosinophils % % Basophils % % Neutrophils # (1.3-7.7) k/uL Lymphocytes # (1.0-4.8) k/uL Monocytes # (0-1.0) k/uL Eosinophils # (0-0.7) k/uL Basophils # (0-0.2) k/uL PT (9.0-12.0) sec INR (<1.2) APTT (22.0-30.0) sec Sodium (137-145) mmol/L Potassium (3.5-5.1) mmol/L Chloride (98-107) mmol/L Carbon Dioxide (22-30) mmol/L Anion Gap mmol/L BUN (9-20) mg/dL Creatinine (0.66-1.25) mg/dL Est GFR (CKD-EPI)AfAm (>60 ml/min/1.73 sqM) Est GFR (CKD-EPI)NonAf (>60 ml/min/1.73 sqM) Glucose (74-99) mg/dL Calcium (8.4-10.2) mg/dL Magnesium (1.6-2.3) mg/dL Total Bilirubin (0.2-1.3) mg/dL AST (17-59) U/L ALT (4-49) U/L Alkaline Phosphatase (38-126) U/L Troponin I <0.012 (0.000-0.034) ng/mL Total Protein (6.3-8.2) g/dL Albumin (3.5-5.0) g/dL Disposition Clinical Impression: Palpitation, Chest tightness, Dizziness Disposition: ADMITTED IP TO THIS [facility] Condition: Fair Time of Disposition: 17:35
[2023-05-01] MEDS: SODIUM CHLORIDE 0.9% 1,000 ML IV SCH (17:58)
[2023-05-02 06:18] VITALS: TEMP 98.5
--- NOTE | 2023-05-02 11:23 | P.CRDCN ---
History of Present Illness Consult date: 05/02/23 Consult reason: chest pain History of present illness: History of present illness: This is a 67-year-old male with past medical history of mild coronary artery disease found on cardiac catheterization 08/13/2020 involving the LAD and left circumflex, family history of premature coronary artery disease, gastroesophageal reflux disease, seasonal ALLERGIES, tobacco use. We have been asked to evaluate the patient for chest pain. Patient states that he developed shortness of breath, lightheadedness, chest pressure/heaviness, headache, fatigue and palpitations about 2 days ago that lasted for 5 hours and then went away by about 50%. By the time he woke up the next day he was feeling fine but it seems to be on and off since then. He had it occur yesterday and he was outside in the sun but at rest at a child's birthday constitution party. He states symptoms are not completely gone at the time of this evaluation. Patient was seen in the past by Dr. gutierres in August 2020 and did not follow-up. He has been seen by rn oncology research he states was Kareem Lyons at [facility] for one visit for Holter monitor. EKG sinus rhythm Chest x-ray: No acute process CBC, electrolytes, renal function, liver function within normal limits. Glucose 158. Troponin negative 3. Home cardiac medications: None Review Of Systems: At the time of my evaluation: Constitutional: No fever, no chills. No weakness, fatigue or lethargy. EENT: No headache. No dizziness. Lungs: No shortness of breath, cough, no sputum production. No wheezing. Cardiovascular: No chest pain, no lower extremity edema. No palpitations. No paroxysmal nocturnal dyspnea. No orthopnea. No lightheadedness or dizziness. No syncopal episodes. Abdominal: No abdominal pain. No nausea, vomiting. No diarrhea. No constipation. No bloody or tarry stools. Genitourinary: No dysuria.. No urinary retention. Musculoskeletal: No myalgias. No muscle weakness, no frequent falls. No back pain. No neck pain. Integumentary: No wounds. No rash. No unusual bruising. Neurologic: No aphasia. No facial droop. No change in mentation. No head injury. No headache. Physical examination: Gen: This is a 67-year-old male. He is resting on the ear structure and appears to be comfortable and in no acute distress VS: reviewed HEENT: Head is atraumatic, normocephalic. Pupils equal, round. Sclerae is anicteric. NECK: Supple. No JVD. LUNGS: Clear to auscultation. No wheezes or rhonchi. No intercostal retractions. HEART: Regular rate and rhythm. No chest wall tenderness ABDOMEN: Soft No tenderness. EXTREMITIES: No pedal edema. No calf tenderness. NEUROLOGICAL: Patient is awake, alert and oriented x3. Assessment: Multiple vague symptoms: Shortness of breath, lightheadedness, chest pressure, headache, fatigue, palpitations Known history of mild coronary artery disease Gastroesophageal reflux disease Plan: Obtain stress echocardiogram today Obtain 2-D echocardiogram and Doppler study to assess cardiac structure and function Further recommendations to follow based upon clinical course Thank you kindly for this consultation. Nurse practitioner note has been reviewed, I agree with documented findings and plan of care. Patient was seen and examined. Past Medical History Past Medical History: Atrial Fibrillation, Cancer, GERD/Reflux Additional Past Medical History / Comment(s): Hypoglycemia. Poss GERD. Productive Coughing up numerous times per day, some regurgitation, feels like lump in throat. History of Any Multi-Drug Resistant Organisms: None Reported Past Surgical History: Orthopedic Surgery, Tonsillectomy Additional Past Surgical History / Comment(s): Colonoscopy. Lt knee meniscus repair. Deviated septum surg. Past Anesthesia/Blood Transfusion Reactions: No Reported Reaction Additional Past Anesthesia/Blood Transfusion Reaction / Comment(s): No transfusion hx Past Psychological History: No Psychological Hx Reported Smoking Status: Former smoker Past Alcohol Use History: None Reported Past Drug Use History: None Reported - Past Family History Father Family Medical History: Cancer Additional Family Medical History / Comment(s): lung, throat CA Mother Family Medical History: Cancer, Deep Vein Thrombosis (DVT) Additional Family Medical History / Comment(s): Breast CA. PVD, amputation. ? poss DVT Medications and Allergies Home Medications Medication Instructions Recorded Confirmed Type Cetirizine HCl [Zyrtec] 10 mg PO DAILY PRN 05/01/23 05/01/23 History Clobetasol Propionate [Temovate 1 applic TOPICAL BID 05/01/23 05/01/23 History 0.05% Oint] Cyclobenzaprine [Flexeril] 10 mg PO BID PRN 05/01/23 05/01/23 History Pantoprazole [Protonix] 40 mg PO DAILY PRN 05/01/23 05/01/23 History Allergies Allergy/AdvReac Type Severity Reaction Status Date / Time No Known Allergies Allergy Verified 05/01/23 17:10 Physical Exam Vitals: Vital Signs Temp Pulse Resp BP Pulse Ox 05/02/23 06:00 98.5 F 46 L 14 132/75 98 05/02/23 05:00 49 L 18 05/02/23 04:00 50 L 16 05/02/23 03:00 54 L 19 05/02/23 02:00 71 19 05/02/23 01:00 60 14 117/72 96 05/02/23 00:00 54 L 19 117/72 98 05/01/23 23:00 62 19 119/76 94 L 05/01/23 22:00 56 L 12 106/68 93 L 05/01/23 21:46 57 L 20 106/68 95 05/01/23 21:00 65 15 128/84 95 05/01/23 20:00 98.9 F 57 L 16 140/81 96 05/01/23 19:00 54 L 97 05/01/23 18:00 48 L 16 145/92 99 05/01/23 17:00 47 L 97 05/01/23 16:46 97 05/01/23 15:21 98.0 F 53 L 20 144/87 94 L 05/01/23 13:35 98 F 75 20 142/88 99 Results 05/01/23 14:00 05/01/23 14:00 Cardiac Enzymes 05/01/23 05/01/23 05/01/23 Range/Units 14:00 14:00 17:53 AST 37 (17-59) U/L Troponin I <0.012 <0.012 (0.000-0.034) ng/mL 05/01/23 Range/Units 20:23 AST (17-59) U/L Troponin I <0.012 (0.000-0.034) ng/mL Coagulation 05/01/23 Range/Units 14:00 PT 10.7 (9.0-12.0) sec APTT 22.7 (22.0-30.0) sec CBC 05/01/23 Range/Units 14:00 WBC 6.6 (3.8-10.6) k/uL RBC 5.02 (4.30-5.90) m/uL Hgb 16.1 (13.0-17.5) gm/dL Hct 46.5 (39.0-53.0) % Plt Count 164 (150-450) k/uL Comprehensive Metabolic Panel 05/01/23 Range/Units 14:00 Sodium 138 (137-145) mmol/L Potassium 4.4 (3.5-5.1) mmol/L Chloride 107 (98-107) mmol/L Carbon Dioxide 23 (22-30) mmol/L BUN 13 (9-20) mg/dL Creatinine 0.94 (0.66-1.25) mg/dL Glucose 158 H (74-99) mg/dL Calcium 9.3 (8.4-10.2) mg/dL AST 37 (17-59) U/L ALT 32 (4-49) U/L Alkaline Phosphatase 54 (38-126) U/L Total Protein 6.4 (6.3-8.2) g/dL Albumin 4.1 (3.5-5.0) g/dL Current Medications Generic Name Dose Route Start Last Admin Trade Name Freq PRN Reason Stop Dose Admin Acetaminophen 650 mg 05/01/23 17:33 Acetaminophen Tab 325 Mg Tab PO Q6HR PRN Mild Pain or Fever > 100.5 Sodium Chloride 1,000 mls @ 75 mls/hr 05/01/23 17:45 05/01/23 17:58 Saline 0.9% IV 75 mls/hr .[id number] GRACY Administration Naloxone HCl 0.2 mg 05/01/23 17:33 Naloxone 0.4 Mg/Ml 1 Ml Vial IV Q2M PRN Opioid Reversal 05/01/23 14:00 05/01/23 14:00
[2023-05-02] MEDS ORDERED: PANTOPRAZOLE 40 MG TABLET PO PRN (14:23)
[2023-05-02] MEDS ORDERED: LORATADINE 10 MG TAB PO PRN (14:23)
[2023-05-02] MEDS: SODIUM CHLORIDE 0.9% 1,000 ML IV SCH (14:39)
--- NOTE | 2023-05-02 14:47 | CA ---
Transthoracic Echo Report Name: Konstantin Starks Age: 67 Gender: M : 1955 Exam Date: 05/02/2023 12:22 Exam Location: [place] [facility] Ht (in): 72 Wt (lb): 225 Ordering Physician: Karuna Reis Attending/Referring Phys: [id number], Smiley Seasonal Greenery Bundler Catherine Bradley RDCS Procedure CPT: Indications: LVF Cardiac Hx: Technical Quality: Good Contrast 1: Total Dose (mL): Contrast 2: Total Dose (mL): MEASUREMENTS (Male / Female) Normal Values 2D ECHO LV Diastolic Diameter PLAX 5.1 cm 4.2 - 5.9 / 3.9 - 5.3 cm LV Systolic Diameter PLAX 3.7 cm IVS Diastolic Thickness 1.0 cm 0.6 - 1.0 / 0.6 - 0.9 cm LVPW Diastolic Thickness 0.9 cm 0.6 - 1.0 / 0.6 - 0.9 cm LV Relative Wall Thickness 0.4 RV Internal Dim ED PLAX 4.1 cm LA Systolic Diameter LX 3.7 cm 3.0 - 4.0 / 2.7 - 3.8 cm LV Diastolic Volume MOD 4C 94.5 cm??? LV Systolic Volume MOD 4C 38.0 cm??? LV Ejection Fraction MOD 4C 59.8 % LV Cardiac Index MOD 4C 1793.3 cm???/min???m??? LV Diastolic Length 4C 8.9 cm LV Systolic Length 4C 6.9 cm LV Diastolic Volume MOD 2C 94.0 cm??? LV Systolic Volume MOD 2C 42.8 cm??? LV Ejection Fraction MOD 2C 54.5 % LV Cardiac Index MOD 2C 1623.7 cm???/min???m??? LV Diastolic Length 2C 9.3 cm LV Systolic Length 2C 7.6 cm LA Volume 53.4 cm??? 18 - 58 / 22 - 52 cm??? M-MODE Aortic Root Diameter MM 3.5 cm MV E Point Septal Separation 1.4 cm AV Cusp Separation MM 1.8 cm DOPPLER AV Peak Velocity 130.1 cm/s AV Peak Gradient 6.8 mmHg MV Area PHT 2.9 cm??? Mitral E Point Velocity 71.3 cm/s Mitral A Point Velocity 82.3 cm/s Mitral E to A Ratio 0.9 MV Deceleration Time 263.4 ms MV E' Velocity 5.6 cm/s Mitral E to MV E' Ratio 12.6 FINDINGS Left Ventricle Left ventricular ejection fraction is estimated at 50-55 %. Left ventricular cavity size normal. Left ventricular wall thickness normal. Right Ventricle Moderate right ventricular dilatation. Unable to estimate the right ventricular systolic pressure. Right Atrium Normal right atrial size. Left Atrium Normal left atrial size. Mitral Valve Structurally normal mitral valve. Trace mitral regurgitation. Aortic Valve Trileaflet aortic valve. No aortic valve stenosis or regurgitation. Tricuspid Valve Structurally normal tricuspid valve. No tricuspid regurgitation. Pulmonic Valve Structurally normal pulmonic valve. No pulmonic regurgitation. Pericardium No pericardial effusion. Aorta Normal size aortic root and proximal ascending aorta. CONCLUSIONS Left ventricular ejection fraction 50-55% Trace mitral regurgitation No tricuspid regurgitation No pericardial effusion RVSP not able to be obtained Previewed by: Dr. Yonatan Mccoy DO (Electronically Signed) Final Date: 02 May 2023 14:47
--- NOTE | 2023-05-02 14:51 | CA ---
Stress Echo Report Konstantin Starks Age: 67 Gender: M : 1955 Exam Date: 05/02/2023 12:04 Exam Location: [place] [facility] Ht (in): 72 Wt (lb): 225 Ordering Physician: Karuna Reis Referring Physician: [id number] Aircraft Charter Dispatcher: Catherine Bradley RDCS Technologist Procedure CPT: Indication: CP ICD-9 Codes: Rhythm: Patient History: CHEST PAIN, DIFFICULTY IN BREATHING, PALPITATIONS, FAMILY HX OF HEART DISEASE, PRIOR CARDIAC CATH, FORMER SMOKER Cardiac Medications: Medications in past 24 hours: Contrast: Lumason Stress Results Protocol: David Total dose(mL): 8 Exercise Duration (min:sec): 5:[address] Depression (mm): Angina Score: Montes Score: METS: 7.1 Resting HR: 73 Resting BP: 119 / 81 Peak HR: 135 Peak BP: 144 / 92 Max Predicted HR: 151 89 % Max Predicted HR Target HR: 128 Double Product: [id number] Stress Summary: BP Response: Reason for Termination: MAX EXERTION/TARGET HR Cardiac Symptoms: FATIGUE,DIFFICULTY IN BREATHING ECG Analysis Resting ECG: Stress ECG: Arrhythmia: Echo Analysis Resting Echo: Peak Echo Analysis: MEASUREMENTS (Male/Female) Normal Values CONCLUSIONS Patient underwent exercise stress echo with a David protocol treadmill stress test. Patient exercised into Stage 2 for a total of 5 minutes and 23 seconds reaching a total of 7.1 METS. Patient's maximum heart rate was 135 which represented 89 % age- predicted maximum heart rate. Stress EKG portion: At baseline patient's EKG showed normal sinus rhythm, normal axis, no significant ST or T wave abnormalities. At peak exercise, EKG showed no significant change from baseline. Stress echo portion: 2-D echocardiogram was performed in the parasternal long, personal short, apical 2 and apical four-chamber views at rest, peak exercise and in recovery. At baseline, echocardiogram showed left ventricular ejection fraction 55% without wall motion abnormalities. With peak exercise, echocardiogram shows improvement in left ventricular ejection fraction, increase contractility, decrease in left ventricular end systolic dimension without wall motion abnormalities consistent with a normal response to exercise. Conclusions: 1. Normal EKG and echo response to exercise without evidence of inducible ischemia. 2. Fair exercise capacity. Dr. Yonatan Mccoy DO (Electronically Signed) Final Date: 02 May 2023 14:50
[2023-05-02 15:47] VITALS: BP 150/103; PULSE 53; RESP 16
--- NOTE | 2023-05-02 16:48 | P.HPIM ---
History of Present Illness H&P Date: 05/02/23 67-year-old male came in with the complaints of chest pressure-like sensation along with shortness of breath lightheadedness headache fatigue and palpitations for last 2 days which lasted for about 5 hours started few days ago resolved and came back again yesterday. Patient had history of cardiac catheterization in 2019 which showed mild coronary artery disease in LAD and left circumflex. Patient's troponins are negative EKG did not show any acute ST-T wave changes cyst x-ray within normal limits. REVIEW OF SYSTEMS: CONSTITUTIONAL: No fever, no malaise, no fatigue. HEENT: No recent visual problems or hearing problems. Denied any sore throat. CARDIOVASCULAR: No orthopnea, PND, no palpitations, no syncope. PULMONARY: no cough, no hemoptysis. GASTROINTESTINAL: No diarrhea, no nausea, no vomiting, no abdominal pain. NEUROLOGICAL: No headaches, no weakness, no numbness. HEMATOLOGICAL: Denies any bleeding or petechiae. GENITOURINARY: Denies any burning micturition, frequency, or urgency. MUSCULOSKELETAL/RHEUMATOLOGICAL: Denies any joint pain, swelling, or any muscle pain. ENDOCRINE: Denies any polyuria or polydipsia. The rest of the 14-point review of systems is negative. PHYSICAL EXAMINATION: GENERAL: The patient is alert and oriented x3, not in any acute distress. Well developed, well nourished. HEENT: Pupils are round and equally reacting to light. EOMI. No scleral icterus. No conjunctival pallor. Normocephalic, atraumatic. No pharyngeal erythema. No thyromegaly. CARDIOVASCULAR: S1 and S2 present. No murmurs, rubs, or gallops. PULMONARY: Chest is clear to auscultation, no wheezing or crackles. ABDOMEN: Soft, nontender, nondistended, normoactive bowel sounds. No palpable organomegaly. MUSCULOSKELETAL: No joint swelling or deformity. EXTREMITIES: No cyanosis, clubbing, or pedal edema. NEUROLOGICAL: Gross neurological examination did not reveal any focal deficits. SKIN: No rashes. Assessment and plan -Chest pain: We'll rule out a concurrent syndromes, possibility of unstable angina cannot be ruled out at this time, patient will undergo stress us if that's negative patient will be discharged Gases visual reflux disease: Continue with Protonix -Asymptomatic sinus bradycardia: No further intervention at this time Patient will be discharged today if stress test is negative Tsh level with free t4 ordered and pending. Patient to follow up with pcp for labs results Past Medical History Past Medical History: Atrial Fibrillation, Cancer, GERD/Reflux Additional Past Medical History / Comment(s): Hypoglycemia. Poss GERD. Productive Coughing up numerous times per day, some regurgitation, feels like lump in throat. History of Any Multi-Drug Resistant Organisms: None Reported Past Surgical History: Orthopedic Surgery, Tonsillectomy Additional Past Surgical History / Comment(s): Colonoscopy. Lt knee meniscus repair. Deviated septum surg. Past Anesthesia/Blood Transfusion Reactions: No Reported Reaction Additional Past Anesthesia/Blood Transfusion Reaction / Comment(s): No transfusion hx Past Psychological History: No Psychological Hx Reported Smoking Status: Former smoker Past Alcohol Use History: None Reported Past Drug Use History: None Reported - Past Family History Father Family Medical History: Cancer Additional Family Medical History / Comment(s): lung, throat CA Mother Family Medical History: Cancer, Deep Vein Thrombosis (DVT) Additional Family Medical History / Comment(s): Breast CA. PVD, amputation. ? poss DVT Medications and Allergies Home Medications Medication Instructions Recorded Confirmed Type Cetirizine HCl [Zyrtec] 10 mg PO DAILY PRN 05/01/23 05/01/23 History Clobetasol Propionate [Temovate 1 applic TOPICAL BID 05/01/23 05/01/23 History 0.05% Oint] Cyclobenzaprine [Flexeril] 10 mg PO BID PRN 05/01/23 05/01/23 History Pantoprazole [Protonix] 40 mg PO DAILY PRN 05/01/23 05/01/23 History Acetaminophen Tab [Tylenol] 650 mg PO Q6HR PRN tab 05/02/23 Rx Allergies Allergy/AdvReac Type Severity Reaction Status Date / Time No Known Allergies Allergy Verified 05/01/23 17:10 Physical Exam Vitals: Vital Signs Temp Pulse Pulse Resp BP BP Pulse Ox 05/02/23 13:33 64 20 150/105 97 05/02/23 09:01 50 L 16 154/88 98 05/02/23 06:00 98.5 F 46 L 14 132/75 98 05/02/23 05:00 49 L 18 05/02/23 04:00 50 L 16 05/02/23 03:00 54 L 19 05/02/23 02:00 71 19 05/02/23 01:00 60 14 117/72 96 05/02/23 00:00 54 L 19 117/72 98 05/01/23 23:00 62 19 119/76 94 L 05/01/23 22:00 56 L 12 106/68 93 L 05/01/23 21:46 57 L 20 106/68 95 05/01/23 21:00 65 15 128/84 95 05/01/23 20:00 98.9 F 57 L 16 140/81 96 05/01/23 19:00 54 L 97 05/01/23 18:00 48 L 16 145/92 99 05/01/23 17:00 47 L 97 05/01/23 16:46 97 05/01/23 15:21 98.0 F 53 L 20 144/87 94 L Results CBC & Chem 7: 05/01/23 14:00 05/01/23 14:00
--- NOTE | 2023-05-02 16:51 | P.DS ---
Providers Date of admission: 05/01/23 16:33 Expected date of discharge: 05/02/23 Attending physician: Victor Hugo Gaston Consults: 05/01/23 17:33 Consult Physician Urgent Consulting Provider: Macey Hawley Consult Reason/Comments: chest pain, palpitations, dizziness Do you want consulting provider notified?: Yes Primary care physician: [facility] Course: 67-year-old male came in with the complaints of chest pressure-like sensation along with shortness of breath lightheadedness headache fatigue and palpitations for last 2 days which lasted for about 5 hours started few days ago resolved and came back again yesterday. Patient had history of cardiac catheterization in 2019 which showed mild coronary artery disease in LAD and left circumflex. Patient's troponins are negative EKG did not show any acute ST-T wave changes cyst x-ray within normal limits. REVIEW OF SYSTEMS: CONSTITUTIONAL: No fever, no malaise, no fatigue. HEENT: No recent visual problems or hearing problems. Denied any sore throat. CARDIOVASCULAR: No orthopnea, PND, no palpitations, no syncope. PULMONARY: no cough, no hemoptysis. GASTROINTESTINAL: No diarrhea, no nausea, no vomiting, no abdominal pain. NEUROLOGICAL: No headaches, no weakness, no numbness. HEMATOLOGICAL: Denies any bleeding or petechiae. GENITOURINARY: Denies any burning micturition, frequency, or urgency. MUSCULOSKELETAL/RHEUMATOLOGICAL: Denies any joint pain, swelling, or any muscle pain. ENDOCRINE: Denies any polyuria or polydipsia. The rest of the 14-point review of systems is negative. PHYSICAL EXAMINATION: GENERAL: The patient is alert and oriented x3, not in any acute distress. Well developed, well nourished. HEENT: Pupils are round and equally reacting to light. EOMI. No scleral icterus. No conjunctival pallor. Normocephalic, atraumatic. No pharyngeal erythema. No thyromegaly. CARDIOVASCULAR: S1 and S2 present. No murmurs, rubs, or gallops. PULMONARY: Chest is clear to auscultation, no wheezing or crackles. ABDOMEN: Soft, nontender, nondistended, normoactive bowel sounds. No palpable organomegaly. MUSCULOSKELETAL: No joint swelling or deformity. EXTREMITIES: No cyanosis, clubbing, or pedal edema. NEUROLOGICAL: Gross neurological examination did not reveal any focal deficits. SKIN: No rashes. Assessment and plan -Chest pain: We'll rule out a concurrent syndromes, possibility of unstable angina cannot be ruled out at this time, patient will undergo stress us if that's negative patient will be discharged Gases visual reflux disease: Continue with Protonix -Asymptomatic sinus bradycardia: No further intervention at this time Patient will be discharged today if stress test is negative Follow up stress test was negative for reducible ischemia and 2d echo within normal limits. Patient will follow up with cardiology and primary care provider on discharge. TSH with Free T4 pending and will be drawn prior to discharge. Patient instructed to follow up with pcp for results. Patient had an episode of elevated blood pressure and patient has been instructed to monitor blood pressure daily and keep a diary of readings to bring with him to pcp follow up and cardiology follow up. Patient does not have history of hypertension. Patient Condition at Discharge: Fair Plan - Discharge Summary New Discharge Prescriptions: New Acetaminophen Tab [Tylenol] 650 mg PO Q6HR PRN tab PRN Reason: Mild Pain Or Fever > 100.5 Continue Cyclobenzaprine [Flexeril] 10 mg PO BID PRN PRN Reason: Muscle Pain Pantoprazole [Protonix] 40 mg PO DAILY PRN PRN Reason: acid reflux Cetirizine HCl [Zyrtec] 10 mg PO DAILY PRN PRN Reason: Allergy Symptoms Clobetasol Propionate [Temovate 0.05% Oint] 1 applic TOPICAL BID Discharge Medication List Cetirizine HCl [Zyrtec] 10 mg PO DAILY PRN 05/01/23 [History] Clobetasol Propionate [Temovate 0.05% Oint] 1 applic TOPICAL BID 05/01/23 [History] Cyclobenzaprine [Flexeril] 10 mg PO BID PRN 05/01/23 [History] Pantoprazole [Protonix] 40 mg PO DAILY PRN 05/01/23 [History] Acetaminophen Tab [Tylenol] 650 mg PO Q6HR PRN tab 05/02/23 [Rx] Follow up Appointment(s)/Referral(s): Yonatan Mccoy DO [STAFF PHYSICIAN] - 2 Weeks Heidi Juarez [Primary Care Provider] - 1-2 days Activity/Diet/Wound Care/Special Instructions: follow up with pcp on discharge follow up on lab results in the [facility] portal or with your pcp follow up cardiology in 1-2 weeks Discharge Disposition: HOME SELF-CARE
== END 2023-05-02 19:00 | disposition home or self-care (01) ==
LOC: EC 13:30 → 6NMEDSUR 16:33 → 1SOBS 05-02 15:59
PROVIDERS: ADMIT Hospitalist; ATTEND Hospitalist
DX: R07.89 Other chest pain (principal); R06.02 Shortness of breath; R00.2 Palpitations; R42 Dizziness and giddiness; R51.9 Headache, unspecified; R53.83 Other fatigue; R00.1 Bradycardia, unspecified; I48.91 Unspecified atrial fibrillation; R03.0 Elevated blood-pressure reading, without diagnosis of hypertension; K21.9 Gastro-esophageal reflux disease without esophagitis; I25.10 Atherosclerotic heart disease of native coronary artery without angina pectoris; Z87.891 Personal history of nicotine dependence; Z79.899 Other long term (current) drug therapy; Z82.49 Family history of ischemic heart disease and other diseases of the circulatory system
CPT/HCPCS: 96360; 99285; 36415; 93005; 93306; 80053; 84443; 83735; 84484; 85025; 85610; 85730; 71046; G0378 ×2; C8930; Q9950; 93351

== ENCOUNTER → 2023-12-05 | Outpatient (CLI) | payer MEDICARE, BC ==
[2023-12-05 15:48] LABS: ALT 25 U/L (10-49); AST 27 U/L (14-35); Albumin 4.3 g/dL (3.8-4.9); Albumin/Globulin Ratio 2.39 Ratio (1.60-3.17); Alkaline Phosphatase 52 U/L (41-126); Bilirubin, Conjugated <0.20 mg/dL (0.20-0.40); Bilirubin,Unconjugated >0.10 mg/dL (0.20-1.00); Chol/HDL Ratio 4.71 Ratio; Globulin 1.8 g/dL (1.6-3.3); LDL Cholesterol,Calculated 96.4 mg/dL (0.0-131.0); Total Bilirubin 0.3 mg/dL (0.3-1.2); Total Protein 6.1 g/dL (6.2-8.2)
== END | disposition home or self-care (01) ==
LOC: LABWHC1 09:23
PROVIDERS: ATTEND Internal Medicine Cardiovascular Disease
DX: I25.10 Atherosclerotic heart disease of native coronary artery without angina pectoris (principal)
CPT/HCPCS: 36415; 80061; 80076

== ENCOUNTER → 2024-02-06 | Outpatient (CLI) | payer MEDICARE, BC ==
[2024-02-06 15:18] LABS: Albumin 4.6 g/dL (3.8-4.9); Chol/HDL Ratio 3.55 Ratio; Total Protein 6.4 g/dL (6.2-8.2)
[2024-02-06 15:19] LABS: ALT 45 U/L (10-49); AST 33 U/L (14-35); Albumin/Globulin Ratio 2.56 Ratio (1.60-3.17); Alkaline Phosphatase 55 U/L (41-126); Bilirubin, Conjugated <0.20 mg/dL (0.20-0.40); Bilirubin,Unconjugated >0.30 mg/dL (0.20-1.00); Globulin 1.8 g/dL (1.6-3.3); Total Bilirubin 0.5 mg/dL (0.3-1.2)
== END | disposition home or self-care (01) ==
LOC: LABWHC1 09:24
PROVIDERS: ATTEND Internal Medicine Cardiovascular Disease
DX: I25.10 Atherosclerotic heart disease of native coronary artery without angina pectoris (principal)
CPT/HCPCS: 36415; 80061; 80076

== ENCOUNTER → 2024-05-02 | Outpatient (CLI) | payer MEDICARE, BC ==
[2024-05-02 15:33] LABS: ALT 40 U/L (10-49); AST 37 U/L (14-35); Albumin 4.6 g/dL (3.8-4.9); Albumin/Globulin Ratio 2.19 Ratio (1.60-3.17); Alkaline Phosphatase 60 U/L (41-126); Blood Urea Nitrogen 13.4 mg/dL (9.0-27.0); Chloride 106 mmol/L (96-109); Globulin 2.1 g/dL (1.6-3.3); Glucose 106 mg/dL (70-110); Potassium 4.8 mmol/L (3.5-5.5); Sodium 143 mmol/L (135-145); Total Bilirubin 0.8 mg/dL (0.3-1.2); Total Protein 6.7 g/dL (6.2-8.2)
[2024-05-02 15:46] LABS: Basophils # (A) 0.08 X 10*3/uL (0.00-0.10); Basophils % (A) 1.3 %; Eosinophils # (A) 0.13 X 10*3/uL (0.04-0.35); Eosinophils % (A) 2.1 %; HCT 51.5 % (39.6-50.0); MCH 31.7 pg (27.0-32.0); MCV 95.9 FL (80.0-97.0); Mean Platelet Volume 11.4 FL (9.5-12.2); Monocytes # (A) 0.42 X 10*3/uL (0.20-1.00); Monocytes % (A) 6.8 %; NRBC Per 100 WBC 0 X 10*3/uL (0.00-0.01); Neutrophils # (A) 4.23 X 10*3/uL (1.80-7.70); Neutrophils % (A) 68.5 %; Platelet Count 215 X 10*3/uL (140-440); RBC 5.37 X 10*6/uL (4.40-5.60); RDW 13.1 % (11.5-14.5); WBC 6.18 X 10*3/uL (4.50-10.00)
== END | disposition home or self-care (01) ==
LOC: LABWHC1 10:38
PROVIDERS: ATTEND Dermatology
DX: L40.0 Psoriasis vulgaris (principal); L57.0 Actinic keratosis; Z79.899 Other long term (current) drug therapy
CPT/HCPCS: 36415; 80053; 85025